=== PATIENT | female | born 1965 | race Caucasian/White ===

== ENCOUNTER → 2018-07-24 | Outpatient (CLI) | payer SELFPAY ==
--- NOTE | 2018-07-24 16:59 | CPEEG ---
[f rep st] ELECTROENCEPHALOGRAM 4-HOUR VIDEO EEG DATE OF STUDY: 07/24/2018 INTERPRETATION: This 4-hour video EEG contains a mild degree of focal slowing over the left posterior temporal head regions. These findings would be consistent with a mild focal disturbance of cerebral function in these regions. There were no definite potentially epileptogenic abnormalities present in the awake or sleep recordings. The patient did not have any clinical events during the video EEG monitoring session. REPORT: This 4-hour video EEG contains 10 Hz alpha activity of the posterior head regions. There was a mild degree of focal slowing over the left posterior temporal head region composed of intermittent theta frequency activity over these regions. There was no abnormal activation at rest, during photic stimulation or hyperventilation. The patient became drowsy and fell asleep during the recording. During drowsiness, he had intermittent bursts of drowsiness composed of theta and delta frequency activity. The patient did not have any abnormal definite epileptiform activation during drowsiness, sleep, or during times of arousal. The patient did not have any clinical events during the video EEG monitor session. /[id number]/MODL MTDD
== END ==
LOC: FCPNEURO 08:42
PROVIDERS: ATTEND Psychiatry & Neurology Neurology
DX: G40.909 Epilepsy, unspecified, not intractable, without status epilepticus (principal)